=== PATIENT | male | born 1975 | race Caucasian/White ===

== ENCOUNTER → 2017-07-13 | Outpatient (CLI) | payer BC ==
[~2017-07-13] MED LIST: ATEN50TA8 PO; OPTIRAY 320 IV PRN; [UNRECOGNIZED DRUG - OTHER]
--- NOTE | 2017-07-13 14:13 | DIAGNOSTIC IMAGING REPORT ---
CT SCAN OF THE ABDOMEN COMBO RENAL MASS PROTOCOL CLINICAL HISTORY: Complex renal cyst. COMPARISON STUDY: Abdominal CT dated 09/11/2015. Abdominal MRI dated 07/21/2016. TECHNIQUE: Before and following the IV administration of 94 cc of Optiray 320, CT scan of the abdomen is performed from the lung bases to the pelvic inlet utilizing renal mass protocol. Images are reviewed in the axial, sagittal, and coronal planes. IV contrast was administered without complication. A dose lowering technique was utilized adhering to the principles of ALARA. CT DOSE: 2051.91 mGycm FINDINGS: Lung bases: The heart is normal in size and without pericardial effusion. There is age advanced atherosclerotic calcification of the coronary arteries. The lung bases are clear. Liver: The contrast-enhanced liver is enlarged, measuring 22 cm in length. The liver demonstrates diffusely diminished attenuation consistent with hepatic steatosis. Fatty sparing is seen adjacent to gallbladder fossa. There is no intrahepatic biliary ductal dilatation. The hepatic veins and portal veins are patent. Gallbladder: Unremarkable. Spleen: Normal in size and attenuation. Pancreas: Unremarkable. Adrenal glands: Unremarkable. Kidneys: No renal calculi are identified on the unenhanced series. The contrast enhanced kidneys are normal in size and without hydronephrosis. The kidneys enhance and excrete symmetrically. A 1.2 cm exophytic cyst arises from the interpolar right kidney. No enhancing cortical mass is identified. There is a lobulated multiloculated/septated cyst versus cluster of adjacent cysts in the upper pole of the left kidney. This is best seen on axial image #154 and measures 2.5 x 2.0 cm. 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 There is no evidence of urothelial lesion in the renal pelvis bilaterally or involving the proximal ureters Abdominal vasculature: The abdominal aorta is normal in course and caliber noting mild atherosclerotic calcification. Bowel: Visualized portions of the small bowel and colon are normal in course and caliber. The appendix is normal as visualized. Peritoneum: There is no intraperitoneal free air or abdominal ascites. Lymphadenopathy: None. Skeletal structures: No lytic or blastic lesions are seen. IMPRESSION: 1. There has been no significant change in the appearance of a 2.5 x 2.0 cm multiloculated cystic lesion versus cluster of adjacent cystic lesions in the upper pole of left kidney. This contains thin internal septations comments remains pathologically indeterminant as a Bosniak 2F lesion. Continued annual follow-up is recommended. 2. No enhancing cortical mass is seen. 3. 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 4. Hepatomegaly and hepatic steatosis. 5. Additional findings as above. Electronically signed by: Robin Broussard M.D. 07/13/2017 2:11 PM Dictated Date/Time: 07/13/2017 1:56 PM
== END | disposition home or self-care (01) ==
LOC: C.CTS 13:35
PROVIDERS: ATTEND Urology
DX: N28.1 Cyst of kidney, acquired (principal)